=== PATIENT | male | born 1980 | race Caucasian/White ===

== ENCOUNTER 2020-03-04 10:42 | Day surgery (SDC) | payer OTHER ==
[~2020-03-04] VITALS: Ht 188 cm; Wt 136.1 kg
--- NOTE | ~2020-03-04 | O ---
[facility] [place] [address] OPERATIVE REPORT Name: SYLVIA ALANIZ Room #: 150-7 [facility] M.Ganga.#: [id number] Admission: 03/04/20 Attend Phys: Yasmani So Discharge: Date of : 76 Report #: [id number] THIS REPORT FOR: cc: ALLEN - Family physician unknown FAM - Family physician unknown Yasmani Mills MD ~ CC: ALLEN unknown Yasmani Mills DATE OF SERVICE: 03/04/2020 PREOPERATIVE DIAGNOSES: Left knee pain, effusion, medial and lateral meniscus tears, anterior cruciate ligament tear, chondromalacia. POSTOPERATIVE DIAGNOSES: Left knee pain, effusion, medial and lateral meniscus tears, anterior cruciate ligament tear, chondromalacia. PROCEDURES PERFORMED: Left knee arthroscopy, partial medial and lateral meniscectomies, ACL debridement, chondroplasty. SURGEON: Yasmani Mills MD IRONER: Rabia Morales PA-C. ANESTHESIA: General per LMA. FLUIDS: Approximately 1 liter crystalloid. ESTIMATED BLOOD LOSS: Less than 5 mL. TOURNIQUET TIME: Approximately 30 minutes at 350 mmHg. DESCRIPTION OF PROCEDURE: After proper identification of the patient and operative site in preoperative holding area, the operative site was signed by myself. Prophylactic antibiotics given. The patient elected to receive general anesthetic. The patient was brought back to the operative suite after induction of satisfactory general anesthesia, the left knee was examined, ____ Smooth's was noted with pivot shift. Knee was stable to varus and valgus stresses without any significant opening at 0-30 degrees. Tourniquet was applied to the upper thigh. The limb was placed in an arthroscopic leg thapa as well. The limb was sterilely prepped and draped in the usual manner. It was elevated and exsanguinated with an Esmarch. Tourniquet was inflated to 350 mmHg. Superomedial portal was created for inflow purposes. Joint was inflated by an arthroscopic pump set at 45 mmHg. An anterolateral and then an anteromedial portal were created using a spinal needle for localization. Examination of the patellofemoral joint revealed a small area of grade 2 chondral thinning and [address] [address] OPERATIVE REPORT Name: SYLVIA ALANIZ Room #: 150-7 [facility] M.Ganga.#: [id number] Admission: 03/04/20 Attend Phys: Yasmani So Discharge: Date of : 76 Report #: [id number] fibrillation that was carefully debrided with motorized shaver. Trochlear surface demonstrated some mild softening, but was otherwise intact. Intraarticular synovitis was noted with a couple of small loose bodies noted in the lateral recess, which was carefully debrided with motorized shaver. Medial compartment of the knee revealed an unstable tear of the posterior horn of the medial meniscus. The more central portion of this meniscus was soft and did not appear to be amenable to repair and a partial medial meniscectomy was performed. Some fibrillation of the medial femoral condyle was noted without significant chondral thinning. This was carefully debrided. Anterior cruciate ligament demonstrated a full-thickness tear that could be pulled off the wall, but there was some scarring to the notch, which made it appear without probing to be relatively intact, but as this was probed, it was obviously torn consistent with his preoperative imaging studies. PCL was intact. There was no impingement of the remaining ACL following the debridement in full extension. Lateral compartment of the knee revealed a complex tear of the lateral meniscus extending from the posterior horn into the mid body. A combination of hand and motorized instrumentation was used to perform a partial lateral meniscectomy back to a stable rim. The patient had torn his entire posterior horn from the capsule and this was fragmented with radial splits in a horizontal component as well, so there was no remaining posterior horn. There was diffuse fibrillation in the lateral tibial plateau without full-thickness extension. This appeared to occupy less than half of the chondral thickness. The remaining anterior horn and more anterior mid body were stable to probing with respect to the lateral meniscus. Knee was thoroughly irrigated with normal saline. Portals were closed with simple nylon stitch. Sterile dressing was applied as well as a [employer] unit. The patient may be weightbearing as tolerated. The patient would like to see how he does with rehab following the meniscal tears and is considering ACL reconstruction sometime in 2020 if he feels like he has any persistent feelings of instability. By: [id number] Yasmani Mills MD /nt
[~2020-03-04 10:42] MED LIST: LOW DOSE ASPIRI81 M1 PO; MULTI VITAMIN1 EACH PO
[2020-03-04 12:10] VITALS: BP 166/110
[2020-03-04 15:16] VITALS: BP 166/110
== END 2020-03-04 15:53 | disposition home or self-care (01) ==
LOC: OR 10:42 → TBA 10:49 → OR 11:35
PROVIDERS: ATTEND Orthopaedic Surgery Sports Medicine
DX: M25.562 Pain in left knee (principal); S83.282A Other tear of lateral meniscus, current injury, left knee, initial encounter; S83.242A Other tear of medial meniscus, current injury, left knee, initial encounter; G47.30 Sleep apnea, unspecified; Z20.828 Contact with and (suspected) exposure to other viral communicable diseases; X58.XXXA Exposure to other specified factors, initial encounter; Y93.89 Activity, other specified; Y92.89 Other specified places as the place of occurrence of the external cause; Y99.8 Other external cause status
CPT/HCPCS: 50010; 50101; 50405; 51320; 56526; 57103; 57180; 62110; 62900; 70005